=== PATIENT | male | born 1940 ===

== ENCOUNTER 2018-01-09 07:10 | Outpatient (CLI) | payer OTHER | END 2018-01-09 09:57 | disposition home or self-care (01) | LOC: NUCLEAR 07:10 | DX: I20.0 Unstable angina (principal); I11.9 Hypertensive heart disease without heart failure; E78.2 Mixed hyperlipidemia | CPT/HCPCS: 78452; 93017; A9500 ==

== ENCOUNTER 2021-01-16 18:56 | Inpatient (IN) | payer OTHER ==
[~2021-01-16] VITALS: Ht 162.6 cm; Wt 68.0 kg
[2021-01-16] MEDS ORDERED: DOXYCYCLINE HY100 M2 PO (19:13)
[2021-01-16] MEDS ORDERED: TELMISARTAN40 MG PO (19:13)
[2021-01-16] MEDS ORDERED: FENOFIBRATE145 MG PO (19:13)
[2021-01-16] MEDS ORDERED: CARVEDILOL25 M1 PO (19:13)
[2021-01-16] MEDS ORDERED: PRAVASTATIN SOD40 MG PO (19:13)
[2021-01-16] MEDS ORDERED: DOXAZOSIN MESYLA4 MG PO (19:13)
[2021-01-16] MEDS ORDERED: SYNTHROID50 MCG PO (19:14)
[2021-01-16] MEDS ORDERED: JANUMET 50-5001 EACH PO (19:14)
[2021-01-16] MEDS ORDERED: EZETIMIBE10 MG (19:14)
[2021-01-16] MEDS ORDERED: SPIRONOLACTONE50 MG PO (19:15)
[2021-01-16] MEDS ORDERED: EPZICOM TABLET1 EACH PO (20:52)
[2021-01-16] MEDS ORDERED: SUSTIVA600 MG PO (20:52)
== END 2021-01-19 11:19 | disposition home or self-care (01) | DRG 977 ==
LOC: ER 18:56 → MEDJ 01-17 01:27 → SURH 01-17 01:27 → MEDI 01-18 15:04
PROVIDERS: ADMIT Internal Medicine; ATTEND Internal Medicine
PROC: BW21ZZZ Computerized Tomography (CT Scan) of Abdomen and Pelvis (ICD-10-PCS; principal; 2021-01-17)
PROC: 8E0ZXY6 Isolation (ICD-10-PCS; 2021-01-18)
DX: K52.89 Other specified noninfective gastroenteritis and colitis (principal); B20 Human immunodeficiency virus [HIV] disease; A02.9 Salmonella infection, unspecified; N21.0 Calculus in bladder

== ENCOUNTER 2021-02-18 20:38 | Emergency (ER) | payer OTHER ==
[~2021-02-18] VITALS: Ht 162.6 cm; Wt 66.2 kg
[~2021-02-18 20:38] MED LIST: CARVEDILOL25 M1 PO; DOXAZOSIN MESYLA4 MG PO; DOXYCYCLINE HY100 M2 PO; EPZICOM TABLET1 EACH PO; EZETIMIBE10 MG; FENOFIBRATE145 MG PO; JANUMET 50-5001 EACH PO; PRAVASTATIN SOD40 MG PO; SPIRONOLACTONE50 MG PO; SUSTIVA600 MG PO; SYNTHROID50 MCG PO; TELMISARTAN40 MG PO
== END 2021-02-18 23:36 | disposition home or self-care (01) ==
LOC: ER 20:38
DX: N99.89 Other postprocedural complications and disorders of genitourinary system (principal); R33.8 Other retention of urine; R31.29 Other microscopic hematuria; Y83.8 Other surgical procedures as the cause of abnormal reaction of the patient, or of later complication, without mention of misadventure at the time of the procedure